=== PATIENT | female | born 1960 | race Caucasian/White ===

== ENCOUNTER 2018-05-14 10:15 | Outpatient (CLI) | payer OTHER ==
--- NOTE | 2018-05-15 14:58 | MMO ---
SCREENING MAMMOGRAPHY: Date: 05-15-18 Comparison: 02-28-12 History: Screening. FINDINGS: This study is interpreted with the assistance of computer aided detection. Scattered fibroglandular density present. Benign calcification present on the left. No dominant mass or architectural distortion. No concerning microcalcifications. IMPRESSION: BIRADS 2 - benign findings. Annual screening mammography recommended. POS: [facility]
== END 2018-05-14 10:16 | disposition home or self-care (01) ==
LOC: SCSMAMMO 10:15
PROVIDERS: ATTEND Internal Medicine
DX: Z12.31 Encounter for screening mammogram for malignant neoplasm of breast (principal)
CPT/HCPCS: 77067

== ENCOUNTER 2018-11-14 10:18 | Outpatient (CLI) | payer OTHER ==
--- NOTE | 2018-11-14 13:40 | CT ---
ABDOMEN CT WITH CONTRAST PELVIC CT WITH CONTRAST: HISTORY: Generalized abdominal pain. COMPARISON: None. CORRELATION: Angiogram chest CT 08/13/2012. FINDINGS: ABDOMEN CT: The lung bases are clear. Stable hypodensity in the left hepatic lobe measuring 0.9 x 1.4 cm. Overall, there is mild hypoatten uation of the liver suggesting hepatic steatosis. No enhancing masses in the liver. Gallbladder is surgically absent. Dilatation of the common bile duct is felt to be due to a reservoir effect from p revious cholecystectomy. Portal vein is patent. Spleen, pancreas, and adrenal glands have appropriate enhancement. No gastrohepatic, retrocrural, or periportal lymphadenopathy. No mesenteric mass, lymphadenopathy, free air, or free fluid. Symmetric enhancement of the kidneys. Bilaterally, no obstructive uropathy. Visualized gastric mucosa, duodenum, and multiple normal-caliber small bowel loops have a normal conf iguration. Ileocecal junction is normal. There is scattered fecal material in a nondistended, nondi lated colon. Occasional diverticulum. There is no diverticulitis. Appendix is not appreciated. No inflammation at the cecal apex. CT PELVIS: Surgically absent uterus. No pelvic mass, lymphadenopathy, free air, or free fluid. No lytic or blastic lesions in the osseous structures. IMPRESSION: No acute abnormality in the abdomen or pelvis. POS: [facility]
== END 2018-11-14 10:19 | disposition home or self-care (01) ==
LOC: SCSCT 10:18
PROVIDERS: ATTEND Internal Medicine Gastroenterology
DX: R10.84 Generalized abdominal pain (principal)
CPT/HCPCS: 74177

== ENCOUNTER 2021-11-25 08:21 | Outpatient (CLI) | payer OTHER | END 2021-11-25 08:22 | disposition home or self-care (01) | LOC: SCSRAD 08:21 | PROVIDERS: ATTEND Internal Medicine | DX: R05.3 Chronic cough (principal) | CPT/HCPCS: 71046 ==

== ENCOUNTER 2022-03-22 09:00 | Outpatient (CLI) | payer OTHER | END 2022-03-22 09:01 | disposition home or self-care (01) | LOC: SCSRAD 09:00 | PROVIDERS: ATTEND Internal Medicine | DX: M54.6 Pain in thoracic spine (principal); R07.81 Pleurodynia | CPT/HCPCS: 72072 ==

== ENCOUNTER 2022-05-17 15:19 | Outpatient (CLI) | payer OTHER | END 2022-05-17 15:20 | disposition home or self-care (01) | LOC: DTY/OP 15:19 | PROVIDERS: ATTEND Physician Assistant Medical | DX: K74.60 Unspecified cirrhosis of liver (principal); K75.81 Nonalcoholic steatohepatitis (NASH) | CPT/HCPCS: 97802 ==

== ENCOUNTER 2022-12-21 09:43 | Outpatient (CLI) | payer OTHER | END 2022-12-21 09:44 | disposition home or self-care (01) | LOC: SCSMRI 09:43 | PROVIDERS: ATTEND Internal Medicine | DX: M25.511 Pain in right shoulder (principal); M65.811 Other synovitis and tenosynovitis, right shoulder ==

== ENCOUNTER 2023-02-14 11:24 | Emergency (ER) | payer OTHER ==
[~2023-02-14 11:24] MED LIST: Iopamidol-370 76% 500 ML MDV (1 ML CHARGE) ONE
[2023-02-14 11:55] LABS: #Lymphocytes 1.3 thou/uL (1.20-3.40); #Monocytes 0.4 thou/uL (0.11-0.59); #Neutrophils 2.7 thou/uL (1.40-6.50); %Basophils 0.9 % (0.0-1.0); %Eosinophils 0.8 % (0.0-10.0); %Lymphocytes 29.4 % (21.0-51.0); %Monocytes 9.4 % (0.0-10.0); %Neutrophils 59.5 % (42.0-75.0); Hemoglobin 14.9 g/dL (12.0-16.0); Mean Corpuscular HGB CONC 33.8 g/dL (32.0-36.0); Mean Corpuscular Hemoglobin 34.3 pg (27.0-31.0); Mean Platelet Volume 9.3 fL (7.4-10.4); Platelet Count 123 10x3/uL (130-400); RBC Distribution Width 13.3 % (11.5-14.5); Red Blood Cell (RBC) Count 4.35 mill/uL (4.20-5.40); White Blood Cell (WBC) Count 4.6 10x3/uL (4.8-10.8)
[2023-02-14 12:17] LABS: ALT (SGPT) 27 U/L (8-55); AST (SGOT) 51 U/L (5-34); Albumin 3.8 g/dL (3.5-5.0); Alkaline Phosphatase 163 U/L (40-110); Anion Gap 13 mmol/L (10-20); BUN (Urea Nitrogen) 15 mg/dL (9.8-20.1); Bilirubin, Total 1.8 mg/dL (0.2-1.2); Calc. Creatinine Clearance 0 mL/min (70-130); Calcium 9.3 mg/dL (7.8-10.44); Carbon Dioxide 23 mmol/L (22-29); Chloride 108 mmol/L (98-107); Estimated GFR 93; Glucose 85 mg/dL (70-105); Lipase 30 U/L (8-78); Potassium 3.9 mmol/L (3.5-5.1); Protein, Total 7.8 g/dL (6.0-8.3); Sodium 140 mmol/L (136-145)
[2023-02-14] MEDS ORDERED: Lidocaine Viscous Sol 2% 15 ml UD Cup ONE (13:33)
[2023-02-14] MEDS ORDERED: Mag-Al 1200 mg/1200 mg/30 ML UDCUP ONE (13:34)
[2023-02-14] MEDS ORDERED: Dicyclomine 20 MG TAB ONE (13:35)
[2023-02-14 13:42] LABS: INR-International Normal Ratio 1.2; PTT 35.5 sec (22.9-36.1); Prothrombin Time 15.3 sec (12.0-14.7)
[2023-02-14 14:12] LABS: Bilirubin Negative (Negative); Blood, Urine Negative (Negative); Clarity Clear (Clear); Glucose, Urine (Dipstick) Normal (Negative); Ketone, Urine Negative (Negative); Leukocyte Negative Leu/uL (Negative); Nitrite Negative (Negative); Protein, Urine (Dipstick) Negative (Neg-Trace); Specific Gravity, Urine 1.008 (1.002-1.036); Urobilinogen Normal mg/dL (Less than 2)
[2023-02-14] MEDS ORDERED: FENTANYL 50 MCG/ML 1 ML VIAL ONE (14:39)
== END 2023-02-14 16:25 | disposition home or self-care (01) ==
LOC: ERS 11:24
DX: K65.4 Sclerosing mesenteritis (principal); D72.829 Elevated white blood cell count, unspecified
CPT/HCPCS: 36415; 74177; 80053; 81003; 83690; 85025; 85610; 85730; 96374; J3010; Q9967

== ENCOUNTER 2024-04-24 07:11 | Outpatient (CLI) | payer OTHER | END 2024-04-24 07:12 | disposition home or self-care (01) | LOC: SCSRAD 07:11 | PROVIDERS: ATTEND Internal Medicine | DX: R79.89 Other specified abnormal findings of blood chemistry (principal) | CPT/HCPCS: 71046 ==

== ENCOUNTER 2024-05-21 14:21 | Outpatient (CLI) | payer OTHER | END 2024-05-21 14:22 | disposition home or self-care (01) | LOC: SCSMRI 14:21 | PROVIDERS: ATTEND Internal Medicine | DX: M51.26 Other intervertebral disc displacement, lumbar region (principal); M51.36 Other intervertebral disc degeneration, lumbar region; M51.34 Other intervertebral disc degeneration, thoracic region; M43.17 Spondylolisthesis, lumbosacral region | CPT/HCPCS: 72148 ==

== ENCOUNTER 2024-08-11 08:07 | Outpatient (CLI) | payer OTHER | END 2024-08-11 08:08 | disposition home or self-care (01) | LOC: SCSMRI 08:07 | PROVIDERS: ATTEND Nurse Practitioner Family | DX: M48.062 Spinal stenosis, lumbar region with neurogenic claudication (principal); M48.07 Spinal stenosis, lumbosacral region; M43.17 Spondylolisthesis, lumbosacral region | CPT/HCPCS: 72148 ==

== ENCOUNTER 2025-06-17 08:34 | Inpatient (IN) | payer OTHER ==
[2025-06-17 09:49] LABS: ALT (SGPT) 26 U/L (Less than 34); AST (SGOT) 69 U/L (11-34); Albumin 3.4 g/dL (3.1-4.5); Alkaline Phosphatase 128 U/L (40-110); Anion Gap 19 mmol/L (10-20); BUN (Urea Nitrogen) 15 mg/dL (9.8-20.1); Bilirubin, Total 2.8 mg/dL (0.3-1.2); Calc. Creatinine Clearance 0 mL/min (70-130); Calcium 9.2 mg/dL (7.8-10.44); Carbon Dioxide 23 mmol/L (23-31); Chloride 95 mmol/L (98-107); Globulin 4.6 g/dL (2.4-3.5); Glucose 96 mg/dL (80-115); Potassium 3.7 mmol/L (3.5-5.1); Sodium 133 mmol/L (136-145)
[2025-06-17 09:52] LABS: #Basophils Less than 0.03 10x3/uL (0.0-0.2); #Eosinophils 0.06 10x3/uL (0.0-0.7); #Monocytes 0.39 10x3/uL (0.11-0.59); #Neutrophils 4.01 10x3/uL (1.40-6.50); %Basophils 0.4 % (0.0-1.0); %Eosinophils 1.1 % (0.0-10.0); %Lymphocytes 19.2 % (21.0-51.0); %Monocytes 7.0 % (0.0-10.0); %Neutrophils 71.8 % (42.0-75.0); Hematocrit 33.9 % (36.0-47.0); Hemoglobin 11.9 g/dL (12.0-16.0); Mean Corpuscular Hemoglobin 33.1 pg (27.0-31.0); Mean Corpuscular Volume 94.2 fL (78.0-98.0); Platelet Count 95 10x3/uL (130-400); Red Blood Cell (RBC) Count 3.60 mill/uL (4.20-5.40); White Blood Cell (WBC) Count 5.58 10x3/uL (4.8-10.8)
[2025-06-17 09:53] LABS: INR-International Normal Ratio 1.7; PTT 41.3 sec (22.9-36.1); Prothrombin Time 19.8 sec (12.0-14.7)
[2025-06-17 09:54] LABS: Troponin I Less than 0.010 ng/mL (< 0.028)
[2025-06-17] MEDS ORDERED: Bacitracin 1 PK ONE (10:09)
[2025-06-17] MEDS ORDERED: Acetaminophen 325 MG TAB ONE (10:09)
[2025-06-17] MEDS ORDERED: Lidocaine 1% w/Epinephrine 1:100K 20 ML VIAL ONE ×4 (10:10→14:55)
[2025-06-17] MEDS ORDERED: Boostrix 0.5 ML (Tdap) VIAL (>/=7 yrs of age) ONE (10:11)
[2025-06-17 10:13] LABS: Platelet Adequacy Comment Platelets Decreased; Target Cells SLIGHT = 2-5 cells HPF (0-1)
[2025-06-17] MEDS ORDERED: Ondansetron PF 4 MG/2 ML Vial ONE ×2 (11:07→12:25)
[2025-06-17] MEDS ORDERED: Iopamidol-370 76% 500 ML MDV (1 ML CHARGE) ONE (11:26)
[2025-06-17] MEDS ORDERED: hydrALAZINE 20 MG/ML VIAL SLOW IVP PRN (12:26)
[2025-06-17] MEDS ORDERED: HYDROmorphone 0.5 MG/0.5 ML SYRINGE ONE (12:45)
[2025-06-17] MEDS ORDERED: levETIRAcetam 500 MG (5 mL) VIAL ONE (14:21)
[2025-06-17] MEDS ORDERED: Thrombin 5000 UNITS/5 ML VIAL ONE (14:27)
[2025-06-17] MEDS ORDERED: PROPOFOL 200 MG/20 ML VIAL ONE (14:57)
[2025-06-17] MEDS ORDERED: Rocuronium Bromide 10 MG/ML (10ML VIAL) ONE (14:57)
[2025-06-17] MEDS ORDERED: PHENYLEPHRINE-NS 100 MCG/ML 10 ML SYRINGE ONE (14:57)
[2025-06-17] MEDS ORDERED: Glycopyrrolate 0.2 MG/ML 5 ML SYRINGE ONE (14:57)
[2025-06-17] MEDS: niCARdipine 25 MG in Sodium Chloride 0.9% 250 ML 250 ML IVPB SCH (19:24)
[2025-06-17] MEDS: levETIRAcetam 500 MG (5 mL) VIAL SLOW IVP SCH (20:00)
[2025-06-18] MEDS: HYDROmorphone 0.5 MG/0.5 ML SYRINGE SLOW IVP SCH (01:53)
[2025-06-18] MEDS: Ondansetron PF 4 MG/2 ML Vial IVP PRN (04:25)
[2025-06-18 04:57] LABS: ALT (SGPT) 19 U/L (Less than 34); AST (SGOT) 47 U/L (11-34); Albumin 3.5 g/dL (3.1-4.5); Alkaline Phosphatase 93 U/L (40-110); Anion Gap 16 mmol/L (10-20); BUN (Urea Nitrogen) 16 mg/dL (9.8-20.1); Bilirubin, Total 2.3 mg/dL (0.3-1.2); Calc. Creatinine Clearance 90 mL/min (70-130); Calcium 8.5 mg/dL (7.8-10.44); Carbon Dioxide 21 mmol/L (23-31); Chloride 102 mmol/L (98-107); Globulin 3.3 g/dL (2.4-3.5); Glucose 125 mg/dL (80-115); Potassium 3.9 mmol/L (3.5-5.1); Sodium 135 mmol/L (136-145)
[2025-06-18 05:06] LABS: #Basophils Less than 0.03 10x3/uL (0.0-0.2); #Eosinophils Less than 0.03 10x3/uL (0.0-0.7); #Monocytes 0.36 10x3/uL (0.11-0.59); #Neutrophils 9.28 10x3/uL (1.40-6.50); %Basophils 0.0 % (0.0-1.0); %Eosinophils 0.0 % (0.0-10.0); %Lymphocytes 3.8 % (21.0-51.0); %Monocytes 3.6 % (0.0-10.0); %Neutrophils 92.1 % (42.0-75.0); Hematocrit 25.2 % (36.0-47.0); Hemoglobin 8.6 g/dL (12.0-16.0); Mean Corpuscular Hemoglobin 34.0 pg (27.0-31.0); Mean Corpuscular Volume 99.6 fL (78.0-98.0); Platelet Count 122 10x3/uL (130-400); Red Blood Cell (RBC) Count 2.53 mill/uL (4.20-5.40); White Blood Cell (WBC) Count 10.07 10x3/uL (4.8-10.8)
[2025-06-18] MEDS: Pantoprazole 40 MG VIAL IVP SCH (09:22)
[2025-06-18] MEDS ORDERED: diphenhydrAMINE 50 MG/ML VIAL IM/IV PRN (10:30)
[2025-06-18] MEDS ORDERED: diphenhydrAMINE 25 MG CAP PO PRN (10:30)
[2025-06-18] MEDS: HYDROmorphone HCl/0.9% NaCl/PF 30 ML IV SCH (11:04)
[2025-06-18] MEDS: Lactulose 20 GM (30 mL) UDCUP PO SCH (16:58)
[2025-06-18] MEDS: Rifaximin 550 MG TAB PO SCH (20:31)
[2025-06-19 04:35] LABS: ALT (SGPT) 17 U/L (Less than 34); AST (SGOT) 52 U/L (11-34); Albumin 3.1 g/dL (3.1-4.5); Alkaline Phosphatase 93 U/L (40-110); Anion Gap 10 mmol/L (10-20); BUN (Urea Nitrogen) 22 mg/dL (9.8-20.1); Bilirubin, Total 1.6 mg/dL (0.3-1.2); Calc. Creatinine Clearance 93 mL/min (70-130); Calcium 8.2 mg/dL (7.8-10.44); Carbon Dioxide 24 mmol/L (23-31); Chloride 106 mmol/L (98-107); Globulin 3.1 g/dL (2.4-3.5); Glucose 113 mg/dL (80-115); Potassium 4.1 mmol/L (3.5-5.1); Sodium 136 mmol/L (136-145)
[2025-06-19 04:37] LABS: #Basophils Less than 0.03 10x3/uL (0.0-0.2); #Eosinophils Less than 0.03 10x3/uL (0.0-0.7); #Monocytes 0.84 10x3/uL (0.11-0.59); #Neutrophils 12.79 10x3/uL (1.40-6.50); %Basophils 0.1 % (0.0-1.0); %Eosinophils 0.0 % (0.0-10.0); %Lymphocytes 4.9 % (21.0-51.0); %Monocytes 5.8 % (0.0-10.0); %Neutrophils 88.9 % (42.0-75.0); Hematocrit 22.7 % (36.0-47.0); Hemoglobin 7.7 g/dL (12.0-16.0); Mean Corpuscular Hemoglobin 33.6 pg (27.0-31.0); Mean Corpuscular Volume 99.1 fL (78.0-98.0); Platelet Count 106 10x3/uL (130-400); Red Blood Cell (RBC) Count 2.29 mill/uL (4.20-5.40); White Blood Cell (WBC) Count 14.38 10x3/uL (4.8-10.8)
[2025-06-19 04:46] LABS: INR-International Normal Ratio 1.8; Prothrombin Time 21.5 sec (12.0-14.7)
[2025-06-19] MEDS: Pantoprazole 40 MG DR.TAB PO SCH (09:23)
[2025-06-19] MEDS: Furosemide 20 MG (2 mL) VIAL SLOW IVP SCH (22:30)
[2025-06-19 22:50] LABS: Hematocrit 23.6 % (36.0-47.0); Hemoglobin 8.1 g/dL (12.0-16.0)
[2025-06-20 06:28] LABS: #Basophils Less than 0.03 10x3/uL (0.0-0.2); #Eosinophils Less than 0.03 10x3/uL (0.0-0.7); #Monocytes 0.65 10x3/uL (0.11-0.59); #Neutrophils 3.89 10x3/uL (1.40-6.50); %Basophils 0.0 % (0.0-1.0); %Eosinophils 0.4 % (0.0-10.0); %Lymphocytes 14.6 % (21.0-51.0); %Monocytes 12.0 % (0.0-10.0); %Neutrophils 72.1 % (42.0-75.0); Hematocrit 24.1 % (36.0-47.0); Hemoglobin 8.1 g/dL (12.0-16.0); Mean Corpuscular Hemoglobin 33.5 pg (27.0-31.0); Mean Corpuscular Volume 99.6 fL (78.0-98.0); Platelet Count 72 10x3/uL (130-400); Red Blood Cell (RBC) Count 2.42 mill/uL (4.20-5.40); White Blood Cell (WBC) Count 5.40 10x3/uL (4.8-10.8)
[2025-06-20 06:54] LABS: ALT (SGPT) 18 U/L (Less than 34); AST (SGOT) 61 U/L (11-34); Albumin 3.1 g/dL (3.1-4.5); Alkaline Phosphatase 93 U/L (40-110); Anion Gap 13 mmol/L (10-20); BUN (Urea Nitrogen) 18 mg/dL (9.8-20.1); Bilirubin, Total 2.2 mg/dL (0.3-1.2); Calc. Creatinine Clearance 117 mL/min (70-130); Calcium 8.2 mg/dL (7.8-10.44); Carbon Dioxide 23 mmol/L (23-31); Chloride 107 mmol/L (98-107); Globulin 3.0 g/dL (2.4-3.5); Glucose 95 mg/dL (80-115); Potassium 3.6 mmol/L (3.5-5.1); Sodium 139 mmol/L (136-145)
[2025-06-20] MEDS: HYDROcodone/Acetaminophen 10/325 mg Tablet PO PRN (13:04)
[2025-06-21 05:42] LABS: #Basophils Less than 0.03 10x3/uL (0.0-0.2); #Eosinophils 0.04 10x3/uL (0.0-0.7); #Monocytes 0.41 10x3/uL (0.11-0.59); #Neutrophils 2.80 10x3/uL (1.40-6.50); %Basophils 0.2 % (0.0-1.0); %Eosinophils 1.0 % (0.0-10.0); %Lymphocytes 19.2 % (21.0-51.0); %Monocytes 10.1 % (0.0-10.0); %Neutrophils 69.0 % (42.0-75.0); Hematocrit 24.7 % (36.0-47.0); Hemoglobin 8.3 g/dL (12.0-16.0); Mean Corpuscular Hemoglobin 32.8 pg (27.0-31.0); Mean Corpuscular Volume 97.6 fL (78.0-98.0); Platelet Count 77 10x3/uL (130-400); Red Blood Cell (RBC) Count 2.53 mill/uL (4.20-5.40); White Blood Cell (WBC) Count 4.06 10x3/uL (4.8-10.8)
[2025-06-21 05:49] LABS: ALT (SGPT) 18 U/L (Less than 34); AST (SGOT) 57 U/L (11-34); Albumin 2.9 g/dL (3.1-4.5); Alkaline Phosphatase 96 U/L (40-110); Anion Gap 12 mmol/L (10-20); BUN (Urea Nitrogen) 14 mg/dL (9.8-20.1); Bilirubin, Total 2.7 mg/dL (0.3-1.2); Calc. Creatinine Clearance 143 mL/min (70-130); Calcium 8.0 mg/dL (7.8-10.44); Carbon Dioxide 23 mmol/L (23-31); Chloride 105 mmol/L (98-107); Globulin 3.0 g/dL (2.4-3.5); Glucose 90 mg/dL (80-115); Potassium 3.8 mmol/L (3.5-5.1); Sodium 136 mmol/L (136-145)
[2025-06-21] MEDS: HYDROcodone/Acetaminophen 10/325 mg Tablet PO PRN (12:15)
[2025-06-21] MEDS: Spironolactone 25 MG TAB PO SCH (18:49)
[2025-06-21] MEDS: Sucralfate 1 GM TAB PO SCH (21:07)
[2025-06-22] MEDS: Acetaminophen 325 MG TAB PO PRN (02:08)
[2025-06-22 06:51] LABS: #Basophils Less than 0.03 10x3/uL (0.0-0.2); #Eosinophils 0.06 10x3/uL (0.0-0.7); #Monocytes 0.32 10x3/uL (0.11-0.59); #Neutrophils 2.26 10x3/uL (1.40-6.50); %Basophils 0.3 % (0.0-1.0); %Eosinophils 1.8 % (0.0-10.0); %Lymphocytes 18.4 % (21.0-51.0); %Monocytes 9.8 % (0.0-10.0); %Neutrophils 69.4 % (42.0-75.0); Hematocrit 23.0 % (36.0-47.0); Hemoglobin 8.0 g/dL (12.0-16.0); Mean Corpuscular Hemoglobin 34.3 pg (27.0-31.0); Mean Corpuscular Volume 98.7 fL (78.0-98.0); Platelet Count 93 10x3/uL (130-400); Red Blood Cell (RBC) Count 2.33 mill/uL (4.20-5.40); White Blood Cell (WBC) Count 3.26 10x3/uL (4.8-10.8)
[2025-06-22 06:52] LABS: ALT (SGPT) 20 U/L (Less than 34); AST (SGOT) 56 U/L (11-34); Albumin 2.8 g/dL (3.1-4.5); Alkaline Phosphatase 101 U/L (40-110); Anion Gap 12 mmol/L (10-20); BUN (Urea Nitrogen) 13 mg/dL (9.8-20.1); Bilirubin, Total 2.4 mg/dL (0.3-1.2); Calc. Creatinine Clearance 143 mL/min (70-130); Calcium 8.0 mg/dL (7.8-10.44); Carbon Dioxide 25 mmol/L (23-31); Chloride 107 mmol/L (98-107); Globulin 3.1 g/dL (2.4-3.5); Glucose 93 mg/dL (80-115); Potassium 3.8 mmol/L (3.5-5.1); Sodium 140 mmol/L (136-145)
[2025-06-22 06:58] LABS: INR-International Normal Ratio 1.6; Prothrombin Time 19.4 sec (12.0-14.7)
[2025-06-22] MEDS: Spironolactone 25 MG TAB PO SCH (08:11)
[2025-06-22] MEDS: oxyCODONE 5 MG TAB PO PRN (13:43)
[2025-06-23 05:24] LABS: #Basophils Less than 0.03 10x3/uL (0.0-0.2); #Eosinophils 0.08 10x3/uL (0.0-0.7); #Monocytes 0.51 10x3/uL (0.11-0.59); #Neutrophils 2.40 10x3/uL (1.40-6.50); %Basophils 0.3 % (0.0-1.0); %Eosinophils 2.1 % (0.0-10.0); %Lymphocytes 19.5 % (21.0-51.0); %Monocytes 13.6 % (0.0-10.0); %Neutrophils 64.2 % (42.0-75.0); Hematocrit 23.1 % (36.0-47.0); Hemoglobin 7.9 g/dL (12.0-16.0); Mean Corpuscular Hemoglobin 33.6 pg (27.0-31.0); Mean Corpuscular Volume 98.3 fL (78.0-98.0); Platelet Count 86 10x3/uL (130-400); Red Blood Cell (RBC) Count 2.35 mill/uL (4.20-5.40); White Blood Cell (WBC) Count 3.74 10x3/uL (4.8-10.8)
[2025-06-23 05:36] LABS: ALT (SGPT) 22 U/L (Less than 34); AST (SGOT) 59 U/L (11-34); Albumin 2.7 g/dL (3.1-4.5); Alkaline Phosphatase 101 U/L (40-110); Anion Gap 10 mmol/L (10-20); BUN (Urea Nitrogen) 10 mg/dL (9.8-20.1); Bilirubin, Total 1.7 mg/dL (0.3-1.2); Calc. Creatinine Clearance 135 mL/min (70-130); Calcium 7.8 mg/dL (7.8-10.44); Carbon Dioxide 27 mmol/L (23-31); Chloride 106 mmol/L (98-107); Globulin 2.9 g/dL (2.4-3.5); Glucose 96 mg/dL (80-115); Potassium 3.9 mmol/L (3.5-5.1); Sodium 139 mmol/L (136-145)
[2025-06-23] MEDS: Furosemide 40 MG TAB PO SCH (09:20)
[2025-06-23] MEDS: Methocarbamol 500 MG TAB PO PRN (15:08)
[2025-06-24 05:56] LABS: ALT (SGPT) 23 U/L (Less than 34); AST (SGOT) 60 U/L (11-34); Albumin 2.8 g/dL (3.1-4.5); Alkaline Phosphatase 120 U/L (40-110); Anion Gap 14 mmol/L (10-20); BUN (Urea Nitrogen) 5 mg/dL (9.8-20.1); Bilirubin, Total 2.1 mg/dL (0.3-1.2); Calc. Creatinine Clearance 132 mL/min (70-130); Calcium 8.3 mg/dL (7.8-10.44); Carbon Dioxide 28 mmol/L (23-31); Chloride 100 mmol/L (98-107); Globulin 3.2 g/dL (2.4-3.5); Glucose 98 mg/dL (80-115); Potassium 3.7 mmol/L (3.5-5.1); Sodium 138 mmol/L (136-145)
[2025-06-24 06:13] LABS: #Basophils Less than 0.03 10x3/uL (0.0-0.2); #Eosinophils 0.09 10x3/uL (0.0-0.7); #Monocytes 0.63 10x3/uL (0.11-0.59); #Neutrophils 3.19 10x3/uL (1.40-6.50); %Basophils 0.4 % (0.0-1.0); %Eosinophils 1.9 % (0.0-10.0); %Lymphocytes 17.9 % (21.0-51.0); %Monocytes 13.1 % (0.0-10.0); %Neutrophils 66.3 % (42.0-75.0); Hematocrit 24.5 % (36.0-47.0); Hemoglobin 8.5 g/dL (12.0-16.0); Mean Corpuscular Hemoglobin 33.5 pg (27.0-31.0); Mean Corpuscular Volume 96.5 fL (78.0-98.0); Platelet Count 95 10x3/uL (130-400); Red Blood Cell (RBC) Count 2.54 mill/uL (4.20-5.40); White Blood Cell (WBC) Count 4.81 10x3/uL (4.8-10.8)
[2025-06-25 04:38] LABS: #Basophils 0.03 10x3/uL (0.0-0.2); #Eosinophils 0.05 10x3/uL (0.0-0.7); #Monocytes 0.76 10x3/uL (0.11-0.59); #Neutrophils 4.38 10x3/uL (1.40-6.50); %Basophils 0.5 % (0.0-1.0); %Eosinophils 0.8 % (0.0-10.0); %Lymphocytes 14.0 % (21.0-51.0); %Monocytes 12.5 % (0.0-10.0); %Neutrophils 71.9 % (42.0-75.0); Hematocrit 29.1 % (36.0-47.0); Hemoglobin 9.9 g/dL (12.0-16.0); Mean Corpuscular Hemoglobin 32.6 pg (27.0-31.0); Mean Corpuscular Volume 95.7 fL (78.0-98.0); Platelet Count 103 10x3/uL (130-400); Red Blood Cell (RBC) Count 3.04 mill/uL (4.20-5.40); White Blood Cell (WBC) Count 6.09 10x3/uL (4.8-10.8)
[2025-06-25 04:44] LABS: ALT (SGPT) 25 U/L (Less than 34); AST (SGOT) 72 U/L (11-34); Albumin 3.0 g/dL (3.1-4.5); Alkaline Phosphatase 139 U/L (40-110); Anion Gap 15 mmol/L (10-20); BUN (Urea Nitrogen) 7 mg/dL (9.8-20.1); Bilirubin, Total 2.4 mg/dL (0.3-1.2); Calc. Creatinine Clearance 115 mL/min (70-130); Calcium 8.7 mg/dL (7.8-10.44); Carbon Dioxide 26 mmol/L (23-31); Chloride 97 mmol/L (98-107); Globulin 3.9 g/dL (2.4-3.5); Glucose 89 mg/dL (80-115); Potassium 4.3 mmol/L (3.5-5.1); Sodium 134 mmol/L (136-145)
[2025-06-25] MEDS: levETIRAcetam 500 MG TAB PO SCH ×2 (07:17→21:47)
[2025-06-26 05:18] LABS: #Basophils 0.03 10x3/uL (0.0-0.2); #Eosinophils 0.10 10x3/uL (0.0-0.7); #Monocytes 0.93 10x3/uL (0.11-0.59); #Neutrophils 4.27 10x3/uL (1.40-6.50); %Basophils 0.4 % (0.0-1.0); %Eosinophils 1.5 % (0.0-10.0); %Lymphocytes 20.1 % (21.0-51.0); %Monocytes 13.9 % (0.0-10.0); %Neutrophils 63.8 % (42.0-75.0); Hematocrit 30.3 % (36.0-47.0); Hemoglobin 10.5 g/dL (12.0-16.0); Mean Corpuscular Hemoglobin 32.6 pg (27.0-31.0); Mean Corpuscular Volume 94.1 fL (78.0-98.0); Platelet Count 136 10x3/uL (130-400); Red Blood Cell (RBC) Count 3.22 mill/uL (4.20-5.40); White Blood Cell (WBC) Count 6.70 10x3/uL (4.8-10.8)
[2025-06-26 05:44] LABS: ALT (SGPT) 24 U/L (Less than 34); AST (SGOT) 54 U/L (11-34); Albumin 3.3 g/dL (3.1-4.5); Alkaline Phosphatase 163 U/L (40-110); Anion Gap 17 mmol/L (10-20); BUN (Urea Nitrogen) 10 mg/dL (9.8-20.1); Bilirubin, Total 2.9 mg/dL (0.3-1.2); Calc. Creatinine Clearance 98 mL/min (70-130); Calcium 9.0 mg/dL (7.8-10.44); Carbon Dioxide 26 mmol/L (23-31); Chloride 96 mmol/L (98-107); Globulin 4.1 g/dL (2.4-3.5); Glucose 102 mg/dL (80-115); Potassium 3.7 mmol/L (3.5-5.1); Sodium 135 mmol/L (136-145)
[2025-06-26 06:04] VITALS: BMI 31.2
[2025-06-26 09:07] VITALS: BP 112/48; TEMP 98.6
[2025-06-26 10:18] VITALS: BMI 31.2
[2025-06-27] MEDS ORDERED: Megestrol Acetate 800 MG/20 ML UDCUP PO SCH (09:00)
== END 2025-06-26 09:55 | DRG 26 ==
LOC: ERS 08:34 → ERHOLD 12:34 → CCU 12:34 → SURG A 14:46 → CCU 19:03 → SURG A 06-19 12:21
PROVIDERS: ADMIT Surgery Trauma Surgery; ATTEND Surgery Trauma Surgery
PROC: 03V Upper Arteries, Restriction (ICD-10-PCS; principal; 2025-06-17)
PROC: 30233L1 Transfusion of Nonautologous Fresh Plasma into Peripheral Vein, Percutaneous Approach (ICD-10-PCS; 2025-06-17)
PROC: 30233N1 Transfusion of Nonautologous Red Blood Cells into Peripheral Vein, Percutaneous Approach (ICD-10-PCS; 2025-06-17)
PROC: 30233R1 Transfusion of Nonautologous Platelets into Peripheral Vein, Percutaneous Approach (ICD-10-PCS; 2025-06-17)
PROC: 30233K1 Transfusion of Nonautologous Frozen Plasma into Peripheral Vein, Percutaneous Approach (ICD-10-PCS; 2025-06-17)
PROC: 00940ZZ Drainage of Intracranial Subdural Space, Open Approach (ICD-10-PCS; 2025-06-17)
PROC: 6A551Z2 Pheresis of Platelets, Multiple (ICD-10-PCS; 2025-06-17)
PROC: 3E03329 Introduction of Other Anti-infective into Peripheral Vein, Percutaneous Approach (ICD-10-PCS; 2025-06-18)
PROC: 0T9B70Z Drainage of Bladder with Drainage Device, Via Natural or Artificial Opening (ICD-10-PCS; 2025-06-18)
PROC: 0HQ1XZZ Repair Face Skin, External Approach (ICD-10-PCS; 2025-06-18)
PROC: 3E0234Z Introduction of Serum, Toxoid and Vaccine into Muscle, Percutaneous Approach (ICD-10-PCS; 2025-06-18)
PROC: 3E033XZ Introduction of Vasopressor into Peripheral Vein, Percutaneous Approach (ICD-10-PCS; 2025-06-18)
DX: S06.5XAA Traumatic subdural hemorrhage with loss of consciousness status unknown, initial encounter (principal); D68.9 Coagulation defect, unspecified; I50.32 Chronic diastolic (congestive) heart failure; F41.9 Anxiety disorder, unspecified; F10.90 Alcohol use, unspecified, uncomplicated; W01.0XXA Fall on same level from slipping, tripping and stumbling without subsequent striking against object, initial encounter; D69.59 Other secondary thrombocytopenia; K75.81 Nonalcoholic steatohepatitis (NASH); R40.2413 Glasgow coma scale score 13-15, at hospital admission; K74.60 Unspecified cirrhosis of liver; S01.81XA Laceration without foreign body of other part of head, initial encounter; Z86.004 Personal history of in-situ neoplasm of other and unspecified digestive organs; Z98.890 Other specified postprocedural states; Z23 Encounter for immunization; Z90.710 Acquired absence of both cervix and uterus; Z90.49 Acquired absence of other specified parts of digestive tract; Z88.8 Allergy status to other drugs, medicaments and biological substances; Z79.899 Other long term (current) drug therapy; Z98.891 History of uterine scar from previous surgery; Z88.6 Allergy status to analgesic agent
CPT/HCPCS: 12011; 36415; 36430; 70450; 70486; 71260; 72125; 74177; 80053; 82140; 84484; 85025; 85610; 85730; 86850; 86900; 86901; 90471; 90715; 93005; 96374; 96375; 96376; C1713; C1876; C1889; J1100; J1171; J1940; J1953; J2270; J2405; J2470; J2550; J2704; J3010; J3373; J7030; J7050; J7799; P9016; P9035; P9059; Q9967

== ENCOUNTER 2025-07-31 11:34 | Inpatient (IN) | payer OTHER ==
[2025-07-31 12:30] LABS: Bacteria/HPF None Seen HPF (None Seen); CAUTI Indications for Culture Alt mental st,lethar; Glucose, Urine (Dipstick) 50 mg/dL (Negative); Leukocyte Negative Leu/uL (Negative); Protein, Urine (Dipstick) Negative (Neg-Trace); RBC/HPF 0-3 HPF (0-3); Specific Gravity, Urine 1.006 (1.002-1.036); WBC/HPF 0-3 HPF (0-3)
[2025-07-31 12:33] LABS: Urine Culture Reflex No No
[2025-07-31] MEDS ORDERED: levETIRAcetam 500 MG (5 mL) VIAL ONE (12:47)
[2025-07-31 13:33] LABS: Osmolality, Urine 263 mOsm/kg (50-1200)
[2025-07-31 14:04] LABS: #Basophils Less than 0.03 10x3/uL (0.0-0.2); #Eosinophils Less than 0.03 10x3/uL (0.0-0.7); #Monocytes 0.63 10x3/uL (0.11-0.59); #Neutrophils 3.49 10x3/uL (1.40-6.50); %Basophils 0.2 % (0.0-1.0); %Eosinophils 0.4 % (0.0-10.0); %Lymphocytes 10.5 % (21.0-51.0); %Monocytes 13.5 % (0.0-10.0); %Neutrophils 75.0 % (42.0-75.0); Hematocrit 20.4 % (36.0-47.0); Hemoglobin 6.9 g/dL (12.0-16.0); Mean Corpuscular Hemoglobin 32.2 pg (27.0-31.0); Mean Corpuscular Volume 95.3 fL (78.0-98.0); Platelet Count 89 10x3/uL (130-400); Red Blood Cell (RBC) Count 2.14 mill/uL (4.20-5.40); White Blood Cell (WBC) Count 4.66 10x3/uL (4.8-10.8)
[2025-07-31 14:12] LABS: ALT (SGPT) 19 U/L (Less than 34); AST (SGOT) 59 U/L (11-34); Albumin 2.1 g/dL (3.1-4.5); Alkaline Phosphatase 136 U/L (40-110); Anion Gap 13 mmol/L (10-20); BUN (Urea Nitrogen) 17 mg/dL (9.8-20.1); Bilirubin, Total 2.9 mg/dL (0.3-1.2); Calc. Creatinine Clearance 0 mL/min (70-130); Calcium 7.9 mg/dL (7.8-10.44); Carbon Dioxide 21 mmol/L (23-31); Chloride 105 mmol/L (98-107); Globulin 3.7 g/dL (2.4-3.5); Glucose 96 mg/dL (80-115); Potassium 3.9 mmol/L (3.5-5.1); Sodium 135 mmol/L (136-145)
[2025-07-31 14:16] LABS: Osmolality, Serum 285 mOsm/kg (280-301)
[2025-07-31] MEDS: levETIRAcetam 500 MG (5 mL) VIAL SLOW IVP SCH (21:53)
[2025-08-01 00:25] VITALS: BMI 35.9
[2025-08-01 04:12] LABS: #Basophils Less than 0.03 10x3/uL (0.0-0.2); #Eosinophils 0.09 10x3/uL (0.0-0.7); #Monocytes 0.46 10x3/uL (0.11-0.59); #Neutrophils 2.62 10x3/uL (1.40-6.50); %Basophils 0.2 % (0.0-1.0); %Eosinophils 2.2 % (0.0-10.0); %Lymphocytes 22.9 % (21.0-51.0); %Monocytes 11.1 % (0.0-10.0); %Neutrophils 63.4 % (42.0-75.0); Hematocrit 21.1 % (36.0-47.0); Hemoglobin 7.6 g/dL (12.0-16.0); Mean Corpuscular Hemoglobin 33.2 pg (27.0-31.0); Mean Corpuscular Volume 92.1 fL (78.0-98.0); Platelet Count 103 10x3/uL (130-400); Red Blood Cell (RBC) Count 2.29 mill/uL (4.20-5.40); White Blood Cell (WBC) Count 4.14 10x3/uL (4.8-10.8)
[2025-08-01 04:26] LABS: Anion Gap 12 mmol/L (10-20); BUN (Urea Nitrogen) 19 mg/dL (9.8-20.1); Calc. Creatinine Clearance 121 mL/min (70-130); Calcium 7.9 mg/dL (7.8-10.44); Carbon Dioxide 23 mmol/L (23-31); Chloride 107 mmol/L (98-107); Glucose 71 mg/dL (80-115); Potassium 3.8 mmol/L (3.5-5.1); Sodium 138 mmol/L (136-145)
[2025-08-01] MEDS: Lactulose 20 GM (30 mL) UDCUP PO SCH (09:10)
[2025-08-01] MEDS: Sucralfate 1 GM TAB PO SCH (09:16)
[2025-08-01] MEDS: Folic Acid 1 MG TAB PO SCH (09:16)
[2025-08-01] MEDS: Dapagliflozin Propanediol 10 MG TAB PO SCH (09:17)
[2025-08-01] MEDS: Ferrous Sulfate 325 MG TAB PO SCH (09:17)
[2025-08-01] MEDS: Furosemide 40 MG TAB PO SCH (09:17)
[2025-08-01] MEDS: Pantoprazole 40 MG DR.TAB PO SCH (09:17)
[2025-08-01] MEDS: Cholecalciferol (Vitamin D3) 400 UNITS TAB PO SCH (09:17)
[2025-08-01] MEDS: Methocarbamol 500 MG TAB PO PRN (09:29)
[2025-08-01] MEDS: cefTRIAXone\\ROCEPHIN 2 GM in Sodium Chloride 0.9% 100 ML IVPB SCH (16:55)
[2025-08-01] MEDS: Mirtazapine 15 MG TAB PO SCH (20:36)
[2025-08-01] MEDS: HYDROcodone/Acetaminophen 10/325 mg Tablet PO SCH (20:55)
[2025-08-01] MEDS: Melatonin 3 MG TAB PO PRN (23:19)
[2025-08-02] MEDS: Lactulose 20 GM (30 mL) UDCUP PO SCH (09:09)
[2025-08-02] MEDS: Gabapentin 400 MG CAP PO SCH (09:13)
[2025-08-02] MEDS: Cholecalciferol 1,000 UNITS (25 MCG) TAB PO SCH (09:13)
[2025-08-02] MEDS: Rifaximin 550 MG TAB PO SCH (10:41)
[2025-08-02 12:06] VITALS: BP 101/61; TEMP 99
[2025-08-02] MEDS: HYDROcodone/Acetaminophen 10/325 mg Tablet PO PRN (12:28)
[2025-08-03] MEDS ORDERED: Spironolactone 25 MG TAB PO SCH (08:00)
== END 2025-08-02 15:33 | disposition home health service (06) | DRG 100 ==
LOC: ERS 11:34 → 2SE 18:22 → OBSVTOIN 08-01 15:34
PROVIDERS: ADMIT Internal Medicine; ATTEND Internal Medicine
PROC: 30233N1 Transfusion of Nonautologous Red Blood Cells into Peripheral Vein, Percutaneous Approach (ICD-10-PCS; principal; 2025-08-01)
PROC: 3E03329 Introduction of Other Anti-infective into Peripheral Vein, Percutaneous Approach (ICD-10-PCS; 2025-08-02)
DX: R56.9 Unspecified convulsions (principal); G93.41 Metabolic encephalopathy; I50.32 Chronic diastolic (congestive) heart failure; K74.60 Unspecified cirrhosis of liver; K31.7 Polyp of stomach and duodenum; D64.9 Anemia, unspecified; F41.9 Anxiety disorder, unspecified; Z88.8 Allergy status to other drugs, medicaments and biological substances; Z79.899 Other long term (current) drug therapy; Z98.890 Other specified postprocedural states; Z90.49 Acquired absence of other specified parts of digestive tract; Z90.710 Acquired absence of both cervix and uterus
CPT/HCPCS: 36415; 36416; 36430; 70450; 71045; 80048; 80053; 81001; 82140; 83930; 83935; 85025; 86850; 86900; 86901; 87077; 87086; 87186; 93005; 95819; 96365; 96375; 96376; G0378; J0696; J1953; J2060; J2272; P9016

== ENCOUNTER 2025-08-16 13:37 | Inpatient (IN) | payer OTHER ==
[2025-08-16] MEDS ORDERED: Furosemide 40 MG (4 mL) VIAL ONE (14:55)
[2025-08-16 15:16] LABS: #Basophils 0.03 10x3/uL (0.0-0.2); #Eosinophils Less than 0.03 10x3/uL (0.0-0.7); #Monocytes 0.83 10x3/uL (0.11-0.59); #Neutrophils 6.13 10x3/uL (1.40-6.50); %Basophils 0.4 % (0.0-1.0); %Eosinophils 0.3 % (0.0-10.0); %Lymphocytes 8.9 % (21.0-51.0); %Monocytes 10.7 % (0.0-10.0); %Neutrophils 79.2 % (42.0-75.0); Hematocrit 25.8 % (36.0-47.0); Hemoglobin 9.0 g/dL (12.0-16.0); Mean Corpuscular Hemoglobin 32.0 pg (27.0-31.0); Mean Corpuscular Volume 91.8 fL (78.0-98.0); Platelet Count 123 10x3/uL (130-400); Red Blood Cell (RBC) Count 2.81 mill/uL (4.20-5.40); White Blood Cell (WBC) Count 7.74 10x3/uL (4.8-10.8)
[2025-08-16] MEDS ORDERED: Acetaminophen 500 MG TAB ONE (15:17)
[2025-08-16] MEDS ORDERED: HYDROcodone/Acetaminophen 10/325 mg Tablet ONE (15:34)
[2025-08-16 15:39] LABS: ALT (SGPT) 19 U/L (Less than 34); AST (SGOT) 70 U/L (11-34); Albumin 2.3 g/dL (3.1-4.5); Alkaline Phosphatase 158 U/L (40-110); Anion Gap 17 mmol/L (10-20); BUN (Urea Nitrogen) 21 mg/dL (9.8-20.1); Bilirubin, Total 4.6 mg/dL (0.3-1.2); Calc. Creatinine Clearance 0 mL/min (70-130); Calcium 8.0 mg/dL (7.8-10.44); Carbon Dioxide 33 mmol/L (23-31); Chloride 85 mmol/L (98-107); Globulin 4.6 g/dL (2.4-3.5); Glucose 97 mg/dL (80-115); Potassium 2.1 mmol/L (3.5-5.1); Sodium 133 mmol/L (136-145)
[2025-08-16 16:03] LABS: Bacteria/HPF None Seen HPF (None Seen); CAUTI Indications for Culture Pelvic or flank pain; Glucose, Urine (Dipstick) Normal (Negative); Leukocyte Negative Leu/uL (Negative); Protein, Urine (Dipstick) Negative (Neg-Trace); RBC/HPF 0-3 HPF (0-3); Specific Gravity, Urine 1.009 (1.002-1.036); WBC/HPF 0-3 HPF (0-3)
[2025-08-16 16:05] LABS: Urine Culture Reflex No No
[2025-08-16] MEDS ORDERED: Potassium Chloride 20 MEQ (100 mL) BAG ONE (17:48)
[2025-08-16] MEDS ORDERED: diphenhydrAMINE 50 MG/ML VIAL ONE (18:06)
[2025-08-16] MEDS ORDERED: Prochlorperazine 10 MG/2 ML VIAL ONE (18:06)
[2025-08-16] MEDS ORDERED: Magnesium 2 GM/50 ML BAG (IN WATER) ONE (18:06)
[2025-08-16] MEDS ORDERED: Senokot S 8.6-50 MG TAB PO PRN (19:29)
[2025-08-16] MEDS ORDERED: Calcium Carbonate 500 MG ChewTAB PO PRN (19:29)
[2025-08-16 20:49] LABS: Magnesium 2.4 mg/dL (1.6-2.6)
[2025-08-16] MEDS ORDERED: levETIRAcetam 500 MG TAB PO SCH (21:00)
[2025-08-16] MEDS ORDERED: levETIRAcetam 500 MG TAB ONE (22:08)
[2025-08-17 00:10] VITALS: BMI 37.2
[2025-08-17] MEDS: Potassium Chloride 20 MEQ in Premix 1 BAG IVPB SCH ×2 (00:22→05:17)
[2025-08-17] MEDS: Melatonin 3 MG TAB PO PRN (00:23)
[2025-08-17] MEDS: Gabapentin 400 MG CAP PO SCH (00:23)
[2025-08-17] MEDS: oxyCODONE 5 MG TAB PO PRN (00:23)
[2025-08-17] MEDS: Sucralfate 1 GM TAB PO SCH (00:24)
[2025-08-17] MEDS: Mirtazapine 15 MG TAB PO SCH (00:24)
[2025-08-17] MEDS: Lactulose 20 GM (30 mL) UDCUP PO SCH (00:25)
[2025-08-17] MEDS: Rifaximin 550 MG TAB PO SCH (04:05)
[2025-08-17] MEDS: Magnesium Sulfate/D5W 1 GM in Premix 1 BAG IVPB SCH (04:05)
[2025-08-17] MEDS: Prochlorperazine 10 MG/2 ML VIAL SLOW IVP SCH (04:05)
[2025-08-17 04:21] LABS: #Basophils 0.03 10x3/uL (0.0-0.2); #Eosinophils 0.07 10x3/uL (0.0-0.7); #Monocytes 0.85 10x3/uL (0.11-0.59); #Neutrophils 4.95 10x3/uL (1.40-6.50); %Basophils 0.4 % (0.0-1.0); %Eosinophils 1.0 % (0.0-10.0); %Lymphocytes 13.6 % (21.0-51.0); %Monocytes 12.4 % (0.0-10.0); %Neutrophils 72.2 % (42.0-75.0); Hematocrit 20.9 % (36.0-47.0); Hemoglobin 7.5 g/dL (12.0-16.0); Mean Corpuscular Hemoglobin 32.8 pg (27.0-31.0); Mean Corpuscular Volume 91.3 fL (78.0-98.0); Platelet Count 103 10x3/uL (130-400); Red Blood Cell (RBC) Count 2.29 mill/uL (4.20-5.40); White Blood Cell (WBC) Count 6.86 10x3/uL (4.8-10.8)
[2025-08-17 04:37] LABS: ALT (SGPT) 17 U/L (Less than 34); AST (SGOT) 53 U/L (11-34); Albumin 2.5 g/dL (3.1-4.5); Alkaline Phosphatase 129 U/L (40-110); Anion Gap 16 mmol/L (10-20); BUN (Urea Nitrogen) 23 mg/dL (9.8-20.1); Bilirubin, Total 4.6 mg/dL (0.3-1.2); Calc. Creatinine Clearance 116 mL/min (70-130); Calcium 7.7 mg/dL (7.8-10.44); Carbon Dioxide 34 mmol/L (23-31); Chloride 85 mmol/L (98-107); Globulin 3.4 g/dL (2.4-3.5); Glucose 78 mg/dL (80-115); Potassium 2.1 mmol/L (3.5-5.1); Sodium 133 mmol/L (136-145)
[2025-08-17] MEDS ORDERED: Electrolyte Replacement Protocol 1 EACH FS SCH (04:45)
[2025-08-17] MEDS: Spironolactone 25 MG TAB PO SCH (08:18)
[2025-08-17] MEDS: levETIRAcetam 500 MG TAB PO SCH (08:19)
[2025-08-17] MEDS: Pantoprazole 40 MG DR.TAB PO SCH (08:20)
[2025-08-17] MEDS: Metoclopramide HCl 10 MG (2 mL) VIAL IVP SCH ×2 (11:22→23:01)
[2025-08-17 15:50] LABS: Hematocrit 22.3 % (36.0-47.0); Hemoglobin 7.6 g/dL (12.0-16.0)
[2025-08-17] MEDS: Aspirin/APAP/Caffeine Tab (Excedrin Migraine) PO PRN (16:53)
[2025-08-17 17:26] LABS: Anion Gap 18 mmol/L (10-20); BUN (Urea Nitrogen) 25 mg/dL (9.8-20.1); Calc. Creatinine Clearance 93 mL/min (70-130); Calcium 7.9 mg/dL (7.8-10.44); Carbon Dioxide 28 mmol/L (23-31); Chloride 87 mmol/L (98-107); Glucose 137 mg/dL (80-115); Magnesium 2.7 mg/dL (1.6-2.6); Potassium 3.3 mmol/L (3.5-5.1); Sodium 130 mmol/L (136-145)
[2025-08-18 04:11] LABS: #Basophils 0.04 10x3/uL (0.0-0.2); #Eosinophils 0.14 10x3/uL (0.0-0.7); #Monocytes 0.87 10x3/uL (0.11-0.59); #Neutrophils 5.46 10x3/uL (1.40-6.50); %Basophils 0.5 % (0.0-1.0); %Eosinophils 1.8 % (0.0-10.0); %Lymphocytes 16.9 % (21.0-51.0); %Monocytes 11.1 % (0.0-10.0); %Neutrophils 69.3 % (42.0-75.0); Hematocrit 22.9 % (36.0-47.0); Hemoglobin 7.7 g/dL (12.0-16.0); Mean Corpuscular Hemoglobin 31.8 pg (27.0-31.0); Mean Corpuscular Volume 94.6 fL (78.0-98.0); Platelet Count 103 10x3/uL (130-400); Red Blood Cell (RBC) Count 2.42 mill/uL (4.20-5.40); White Blood Cell (WBC) Count 7.87 10x3/uL (4.8-10.8)
[2025-08-18 04:26] LABS: ALT (SGPT) 23 U/L (Less than 34); AST (SGOT) 73 U/L (11-34); Albumin 2.6 g/dL (3.1-4.5); Alkaline Phosphatase 137 U/L (40-110); Anion Gap 15 mmol/L (10-20); BUN (Urea Nitrogen) 29 mg/dL (9.8-20.1); Bilirubin, Total 3.4 mg/dL (0.3-1.2); Calc. Creatinine Clearance 69 mL/min (70-130); Calcium 7.8 mg/dL (7.8-10.44); Carbon Dioxide 30 mmol/L (23-31); Chloride 85 mmol/L (98-107); Globulin 3.8 g/dL (2.4-3.5); Glucose 93 mg/dL (80-115); Magnesium 2.6 mg/dL (1.6-2.6); Potassium 2.9 mmol/L (3.5-5.1); Sodium 127 mmol/L (136-145)
[2025-08-18] MEDS: NS 0.9% w/ 40 MEQ KCL 1,000 ML IV SCH (09:23)
[2025-08-18] MEDS: Ondansetron PF 4 MG/2 ML Vial IVP PRN (09:48)
[2025-08-18] MEDS: Metoclopramide HCl 10 MG (2 mL) VIAL IVP SCH (14:07)
[2025-08-18] MEDS: Albumin 25% 25 GM (100 mL) BOT IVPB SCH (14:08)
[2025-08-18] MEDS: diphenhydrAMINE 50 MG/ML VIAL IVP SCH (14:08)
[2025-08-18] MEDS: Morphine IR Tab 15 MG TAB PO PRN (17:40)
[2025-08-18 18:06] LABS: Anion Gap 14 mmol/L (10-20); BUN (Urea Nitrogen) 27 mg/dL (9.8-20.1); Calc. Creatinine Clearance 70 mL/min (70-130); Calcium 7.8 mg/dL (7.8-10.44); Carbon Dioxide 28 mmol/L (23-31); Chloride 85 mmol/L (98-107); Glucose 166 mg/dL (80-115); Magnesium 2.7 mg/dL (1.6-2.6); Potassium 3.9 mmol/L (3.5-5.1); Sodium 123 mmol/L (136-145)
[2025-08-19 04:26] LABS: #Basophils 0.03 10x3/uL (0.0-0.2); #Eosinophils 0.14 10x3/uL (0.0-0.7); #Monocytes 0.83 10x3/uL (0.11-0.59); #Neutrophils 7.07 10x3/uL (1.40-6.50); %Basophils 0.3 % (0.0-1.0); %Eosinophils 1.5 % (0.0-10.0); %Lymphocytes 10.4 % (21.0-51.0); %Monocytes 9.2 % (0.0-10.0); %Neutrophils 78.2 % (42.0-75.0); Hematocrit 22.4 % (36.0-47.0); Hemoglobin 7.5 g/dL (12.0-16.0); Mean Corpuscular Hemoglobin 31.8 pg (27.0-31.0); Mean Corpuscular Volume 94.9 fL (78.0-98.0); Platelet Count 94 10x3/uL (130-400); Red Blood Cell (RBC) Count 2.36 mill/uL (4.20-5.40); White Blood Cell (WBC) Count 9.05 10x3/uL (4.8-10.8)
[2025-08-19 04:34] LABS: ALT (SGPT) 22 U/L (Less than 34); AST (SGOT) 84 U/L (11-34); Albumin 3.5 g/dL (3.1-4.5); Alkaline Phosphatase 133 U/L (40-110); Anion Gap 15 mmol/L (10-20); BUN (Urea Nitrogen) 29 mg/dL (9.8-20.1); Bilirubin, Total 3.8 mg/dL (0.3-1.2); Calc. Creatinine Clearance 71 mL/min (70-130); Calcium 8.4 mg/dL (7.8-10.44); Carbon Dioxide 29 mmol/L (23-31); Chloride 86 mmol/L (98-107); Globulin 3.8 g/dL (2.4-3.5); Glucose 102 mg/dL (80-115); Magnesium 2.8 mg/dL (1.6-2.6); Potassium 3.8 mmol/L (3.5-5.1); Sodium 126 mmol/L (136-145)
[2025-08-19] MEDS: Albumin 25% 25 GM (100 mL) BOT IVPB SCH ×2 (10:43→14:48)
[2025-08-19 17:50] LABS: Anion Gap 14 mmol/L (10-20); BUN (Urea Nitrogen) 26 mg/dL (9.8-20.1); Calc. Creatinine Clearance 83 mL/min (70-130); Calcium 8.6 mg/dL (7.8-10.44); Carbon Dioxide 26 mmol/L (23-31); Chloride 88 mmol/L (98-107); Glucose 103 mg/dL (80-115); Magnesium 2.7 mg/dL (1.6-2.6); Potassium 4.3 mmol/L (3.5-5.1); Sodium 124 mmol/L (136-145)
[2025-08-20 04:19] LABS: #Basophils Less than 0.03 10x3/uL (0.0-0.2); #Eosinophils 0.08 10x3/uL (0.0-0.7); #Monocytes 0.63 10x3/uL (0.11-0.59); #Neutrophils 5.71 10x3/uL (1.40-6.50); %Basophils 0.3 % (0.0-1.0); %Eosinophils 1.1 % (0.0-10.0); %Lymphocytes 8.6 % (21.0-51.0); %Monocytes 8.9 % (0.0-10.0); %Neutrophils 80.7 % (42.0-75.0); Hematocrit 19.6 % (36.0-47.0); Hemoglobin 6.8 g/dL (12.0-16.0); Mean Corpuscular Hemoglobin 32.4 pg (27.0-31.0); Mean Corpuscular Volume 93.3 fL (78.0-98.0); Platelet Count 72 10x3/uL (130-400); Red Blood Cell (RBC) Count 2.10 mill/uL (4.20-5.40); White Blood Cell (WBC) Count 7.08 10x3/uL (4.8-10.8)
[2025-08-20 04:30] LABS: ALT (SGPT) 13 U/L (Less than 34); AST (SGOT) 51 U/L (11-34); Albumin 4.0 g/dL (3.1-4.5); Alkaline Phosphatase 114 U/L (40-110); Anion Gap 14 mmol/L (10-20); BUN (Urea Nitrogen) 33 mg/dL (9.8-20.1); Bilirubin, Total 4.7 mg/dL (0.3-1.2); Calc. Creatinine Clearance 76 mL/min (70-130); Calcium 8.6 mg/dL (7.8-10.44); Carbon Dioxide 27 mmol/L (23-31); Chloride 89 mmol/L (98-107); Globulin 2.9 g/dL (2.4-3.5); Glucose 99 mg/dL (80-115); Magnesium 2.6 mg/dL (1.6-2.6); Potassium 4.1 mmol/L (3.5-5.1); Sodium 126 mmol/L (136-145)
[2025-08-20 04:54] LABS: Free T4 (Free Thyroxine) 1.07 ng/dL (0.70-1.48); Thyroid Stimulating Hormone 1.1567 uIU/mL (0.35-4.94)
[2025-08-20] MEDS: Acetaminophen 500 MG TAB PO SCH ×2 (05:03→23:39)
[2025-08-20] MEDS: Furosemide 40 MG (4 mL) VIAL SLOW IVP SCH ×3 (11:26→21:05)
[2025-08-20] MEDS: Albumin 25% 25 GM (100 mL) BOT IVPB SCH ×2 (11:26→11:28)
[2025-08-20 18:09] LABS: Hematocrit 21.6 % (36.0-47.0); Hemoglobin 7.4 g/dL (12.0-16.0)
[2025-08-20 18:33] LABS: Anion Gap 18 mmol/L (10-20); BUN (Urea Nitrogen) 31 mg/dL (9.8-20.1); Calc. Creatinine Clearance 80 mL/min (70-130); Calcium 8.7 mg/dL (7.8-10.44); Carbon Dioxide 26 mmol/L (23-31); Chloride 87 mmol/L (98-107); Glucose 109 mg/dL (80-115); Potassium 4.3 mmol/L (3.5-5.1); Sodium 127 mmol/L (136-145)
[2025-08-20] MEDS: LevoFLOXacin 750 mg/D5W 750 MG in Premix 1 BAG IVPB SCH (21:05)
[2025-08-20 22:22] LABS: Bacteria/HPF 4+ HPF (None Seen); CAUTI Indications for Culture Alt mental st,lethar; Glucose, Urine (Dipstick) Normal (Negative); Leukocyte 500 Leu/uL (Negative); Protein, Urine (Dipstick) 10 mg/dL (Neg-Trace); Specific Gravity, Urine 1.012 (1.002-1.036); WBC/HPF 21-50 HPF (0-3)
[2025-08-20 22:24] LABS: Urine Culture Reflex Yes Yes
[2025-08-21 04:09] LABS: #Basophils Less than 0.03 10x3/uL (0.0-0.2); #Eosinophils 0.06 10x3/uL (0.0-0.7); #Monocytes 0.73 10x3/uL (0.11-0.59); #Neutrophils 6.37 10x3/uL (1.40-6.50); %Basophils 0.3 % (0.0-1.0); %Eosinophils 0.8 % (0.0-10.0); %Lymphocytes 5.4 % (21.0-51.0); %Monocytes 9.6 % (0.0-10.0); %Neutrophils 83.4 % (42.0-75.0); Hematocrit 20.3 % (36.0-47.0); Hemoglobin 6.9 g/dL (12.0-16.0); Mean Corpuscular Hemoglobin 32.4 pg (27.0-31.0); Mean Corpuscular Volume 95.3 fL (78.0-98.0); Platelet Count 67 10x3/uL (130-400); Red Blood Cell (RBC) Count 2.13 mill/uL (4.20-5.40); White Blood Cell (WBC) Count 7.63 10x3/uL (4.8-10.8)
[2025-08-21 04:16] LABS: ALT (SGPT) 11 U/L (Less than 34); AST (SGOT) 44 U/L (11-34); Albumin 4.2 g/dL (3.1-4.5); Alkaline Phosphatase 93 U/L (40-110); Anion Gap 17 mmol/L (10-20); BUN (Urea Nitrogen) 35 mg/dL (9.8-20.1); Bilirubin, Total 6.2 mg/dL (0.3-1.2); Calc. Creatinine Clearance 69 mL/min (70-130); Calcium 8.8 mg/dL (7.8-10.44); Carbon Dioxide 26 mmol/L (23-31); Chloride 89 mmol/L (98-107); Globulin 2.5 g/dL (2.4-3.5); Glucose 90 mg/dL (80-115); Magnesium 2.6 mg/dL (1.6-2.6); Potassium 4.3 mmol/L (3.5-5.1); Sodium 128 mmol/L (136-145)
[2025-08-21] MEDS: Furosemide 20 MG (2 mL) VIAL SLOW IVP SCH (06:44)
[2025-08-21 07:31] LABS: #Basophils Less than 0.03 10x3/uL (0.0-0.2); #Eosinophils 0.08 10x3/uL (0.0-0.7); #Monocytes 0.60 10x3/uL (0.11-0.59); #Neutrophils 7.47 10x3/uL (1.40-6.50); %Basophils 0.2 % (0.0-1.0); %Eosinophils 0.9 % (0.0-10.0); %Lymphocytes 6.1 % (21.0-51.0); %Monocytes 6.9 % (0.0-10.0); %Neutrophils 85.4 % (42.0-75.0); Hematocrit 22.7 % (36.0-47.0); Hemoglobin 7.7 g/dL (12.0-16.0); Mean Corpuscular Hemoglobin 32.0 pg (27.0-31.0); Mean Corpuscular Volume 94.2 fL (78.0-98.0); Platelet Count 71 10x3/uL (130-400); Red Blood Cell (RBC) Count 2.41 mill/uL (4.20-5.40); White Blood Cell (WBC) Count 8.74 10x3/uL (4.8-10.8)
[2025-08-21 07:38] LABS: INR-International Normal Ratio 2.0; Prothrombin Time 23.2 sec (12.0-14.7)
[2025-08-21 07:39] LABS: PTT 48.7 sec (22.9-36.1)
[2025-08-21] MEDS: Furosemide 40 MG (4 mL) VIAL SLOW IVP SCH (08:24)
[2025-08-21 15:40] LABS: Actual Bicarbonate (HCO3a) 26.8 mEq/L (22-28); Base Excess (BEa) 3.1 mEq/L (-2.0 to +3.0); CO2 Tension 37.4 mmHg (35.0-45.0); Calcium, Ionized (arterial) 1.08 mmol/L (1.12-1.30); Hematocrit-ABG 27 % (36.0-47.0); Hemoglobin (Hb) 9.3 g/dL (12.0-16.0); O2 Tension (PaO2), arterial 62.0 mmHg (> 80.0); Potassium - ABG Lab 4.50 mmol/L (3.70-5.30); pH, Arterial 7.473 (7.35-7.45)
[2025-08-21 15:42] LABS: ALV-art Gradient 604.250 mmHg (0-20); Puncture Site Left Radial artery
[2025-08-21] MEDS ORDERED: Ventilator Sedation Protocol 1 EACH FS SCH (20:15)
[2025-08-21] MEDS ORDERED: Propofol BOLUS 1,000 MG/100 ML VIAL IV PRN (20:30)
[2025-08-21] MEDS ORDERED: Fentanyl BOLUS 100 ML IVPB PRN (20:30)
[2025-08-21] MEDS ORDERED: DISCONTINUE PREVIOUS NARCOTIC PAIN MEDICATIONS AND BENZODIAZEPINES FS SCH (20:30)
[2025-08-21 20:41] LABS: Actual Bicarbonate (HCO3a) 22.3 mEq/L (22-28); Base Excess (BEa) -3.0 mEq/L (-2.0 to +3.0); CO2 Tension 40.9 mmHg (35.0-45.0); Calcium, Ionized (arterial) 1.10 mmol/L (1.12-1.30); Hematocrit-ABG 29 % (36.0-47.0); Hemoglobin (Hb) 9.7 g/dL (12.0-16.0); Potassium - ABG Lab 4.15 mmol/L (3.70-5.30); pH, Arterial 7.355 (7.35-7.45)
[2025-08-21 20:47] LABS: O2 Tension (PaO2), arterial 47.2 mmHg (> 80.0); Puncture Site Right Radial artery
[2025-08-21 20:48] LABS: ALV-art Gradient 614.675 mmHg (0-20)
[2025-08-21] MEDS ORDERED: Calcium Carbonate 500 MG ChewTAB PER TUBE PRN (23:01)
[2025-08-21] MEDS ORDERED: Melatonin 3 MG TAB PER TUBE PRN (23:02)
[2025-08-21] MEDS ORDERED: Bisacodyl 10 MG SUPP PR PRN (23:04)
[2025-08-21] MEDS ORDERED: Senokot S 8.6-50 MG TAB PER TUBE PRN (23:07)
[2025-08-22] MEDS ORDERED: NOREPINEPHRINE 8 MG/250 ML-D5W 250 ML IVPB SCH (00:45)
[2025-08-22] MEDS: Norepinephrine 16 MG in Dextrose 5% in Water 234 ML IVPB SCH (01:53)
[2025-08-22 03:58] LABS: #Basophils 0.03 10x3/uL (0.0-0.2); #Eosinophils Less than 0.03 10x3/uL (0.0-0.7); #Monocytes 0.60 10x3/uL (0.11-0.59); #Neutrophils 15.29 10x3/uL (1.40-6.50); %Basophils 0.2 % (0.0-1.0); %Eosinophils 0.1 % (0.0-10.0); %Lymphocytes 1.8 % (21.0-51.0); %Monocytes 3.7 % (0.0-10.0); %Neutrophils 93.7 % (42.0-75.0); Hematocrit 25.2 % (36.0-47.0); Hemoglobin 8.4 g/dL (12.0-16.0); Mean Corpuscular Hemoglobin 32.2 pg (27.0-31.0); Mean Corpuscular Volume 96.6 fL (78.0-98.0); Platelet Count 63 10x3/uL (130-400); Red Blood Cell (RBC) Count 2.61 mill/uL (4.20-5.40); White Blood Cell (WBC) Count 16.30 10x3/uL (4.8-10.8)
[2025-08-22 04:27] LABS: ALT (SGPT) 11 U/L (Less than 34); AST (SGOT) 51 U/L (11-34); Albumin 3.6 g/dL (3.1-4.5); Alkaline Phosphatase 71 U/L (40-110); Anion Gap 19 mmol/L (10-20); BUN (Urea Nitrogen) 25 mg/dL (9.8-20.1); Bilirubin, Total 7.3 mg/dL (0.3-1.2); Calc. Creatinine Clearance 117 mL/min (70-130); Calcium 8.8 mg/dL (7.8-10.44); Carbon Dioxide 20 mmol/L (23-31); Chloride 99 mmol/L (98-107); Globulin 2.4 g/dL (2.4-3.5); Glucose 69 mg/dL (80-115); Potassium 3.7 mmol/L (3.5-5.1); Sodium 134 mmol/L (136-145)
[2025-08-22 07:45] LABS: Actual Bicarbonate (HCO3a) 22.8 mEq/L (22-28); Base Excess (BEa) -1.6 mEq/L (-2.0 to +3.0); CO2 Tension 37.0 mmHg (35.0-45.0); Calcium, Ionized (arterial) 1.14 mmol/L (1.12-1.30); Hematocrit-ABG 27 % (36.0-47.0); Hemoglobin (Hb) 9.1 g/dL (12.0-16.0); Potassium - ABG Lab 3.93 mmol/L (3.70-5.30); pH, Arterial 7.407 (7.35-7.45)
[2025-08-22 07:53] LABS: ALV-art Gradient 618.450 mmHg (0-20); O2 Tension (PaO2), arterial 48.3 mmHg (> 80.0); Puncture Site Left Radial artery
[2025-08-22] MEDS: Potassium Bicarbonate/Cit Ac 20 MEQ TAB PER TUBE SCH (08:59)
[2025-08-22] MEDS: Furosemide 40 MG (4 mL) VIAL SLOW IVP SCH (10:57)
[2025-08-22] MEDS: Lactulose 20 GM (30 mL) UDCUP PER TUBE SCH (10:58)
[2025-08-22] MEDS: Gabapentin 400 MG CAP PER TUBE SCH (11:01)
[2025-08-22] MEDS: levETIRAcetam 500 mg/5 ml Oral Solution PER TUBE SCH ×2 (11:02→20:39)
[2025-08-22] MEDS: Pantoprazole 40 MG VIAL IVP SCH (11:03)
[2025-08-22] MEDS: Rifaximin 550 MG TAB PER TUBE SCH (11:13)
[2025-08-22 12:31] LABS: HBSAB Concentration 413.93 mIU/mL; Hep B Core Total Ab NONREACTIVE (NonReactive); Hep B Core Total Index 0.45 S/CO (0-0.79); Hep B Surf Ag NONREACTIVE S/CO (NonReactive); Hep C IgG Ab NONREACTIVE S/CO (NonReactive); Hep C Index 0.24 S/CO (0-0.79)
[2025-08-22] MEDS: Mirtazapine 15 MG TAB PER TUBE SCH (20:40)
[2025-08-22] MEDS ORDERED: Glucagon 1 MG/ML KIT IM PRN (21:00)
[2025-08-22] MEDS ORDERED: Dextrose 50% Abboject 50 ML SYRINGE SLOW IVP PRN (21:00)
[2025-08-23] MEDS: Vasopressin In 0.9 % NaCl 100 ML IV SCH (01:36)
[2025-08-23 05:26] LABS: #Basophils 0.04 10x3/uL (0.0-0.2); #Eosinophils 0.32 10x3/uL (0.0-0.7); #Monocytes 0.62 10x3/uL (0.11-0.59); #Neutrophils 11.31 10x3/uL (1.40-6.50); %Basophils 0.3 % (0.0-1.0); %Eosinophils 2.5 % (0.0-10.0); %Lymphocytes 3.7 % (21.0-51.0); %Monocytes 4.8 % (0.0-10.0); %Neutrophils 87.8 % (42.0-75.0); Hematocrit 22.6 % (36.0-47.0); Hemoglobin 7.5 g/dL (12.0-16.0); Mean Corpuscular Hemoglobin 32.5 pg (27.0-31.0); Mean Corpuscular Volume 97.8 fL (78.0-98.0); Platelet Count 53 10x3/uL (130-400); Red Blood Cell (RBC) Count 2.31 mill/uL (4.20-5.40); White Blood Cell (WBC) Count 12.87 10x3/uL (4.8-10.8)
[2025-08-23 05:27] LABS: ALT (SGPT) 17 U/L (Less than 34); AST (SGOT) 94 U/L (11-34); Albumin 3.1 g/dL (3.1-4.5); Alkaline Phosphatase 69 U/L (40-110); Anion Gap 15 mmol/L (10-20); BUN (Urea Nitrogen) 24 mg/dL (9.8-20.1); Bilirubin, Total 6.0 mg/dL (0.3-1.2); Calc. Creatinine Clearance 72 mL/min (70-130); Calcium 8.6 mg/dL (7.8-10.44); Carbon Dioxide 22 mmol/L (23-31); Chloride 102 mmol/L (98-107); Globulin 2.4 g/dL (2.4-3.5); Glucose 78 mg/dL (80-115); Magnesium 2.3 mg/dL (1.6-2.6); Potassium 3.8 mmol/L (3.5-5.1); Sodium 135 mmol/L (136-145)
[2025-08-23 05:57] LABS: Anisocytosis SLIGHT = 6-15 cells HPF (0-5); Burr Cells SLIGHT = 2-5 cells HPF (0-1); Macrocytosis MARKED = >30 cells HPF (0-5); Platelet Adequacy Comment Platelets Decreased; Poikilocytosis SLIGHT = 6-15 cells HPF (0-5); Polychromasia SLIGHT = 2-3 cells HPF (0-2); Schistocytes SLIGHT = 2-5 cells HPF (0-1); Smudge Cells 1.0 %; Target Cells SLIGHT = 2-5 cells HPF (0-1)
[2025-08-23 06:34] LABS: Actual Bicarbonate (HCO3a) 22.6 mEq/L (22-28); Base Excess (BEa) -1.2 mEq/L (-2.0 to +3.0); CO2 Tension 34.3 mmHg (35.0-45.0); Calcium, Ionized (arterial) 1.16 mmol/L (1.12-1.30); Hematocrit-ABG 26 % (36.0-47.0); Hemoglobin (Hb) 8.9 g/dL (12.0-16.0); Potassium - ABG Lab 3.89 mmol/L (3.70-5.30); pH, Arterial 7.437 (7.35-7.45)
[2025-08-23 06:50] LABS: O2 Tension (PaO2), arterial 43.4 mmHg (> 80.0); Puncture Site Right Radial artery
[2025-08-23 06:51] LABS: ALV-art Gradient 341.525 mmHg (0-20)
[2025-08-23] MEDS ORDERED: Gabapentin 400 MG CAP PER TUBE SCH (10:55)
[2025-08-23] MEDS: Gabapentin 100 MG CAP PER TUBE SCH (15:26)
[2025-08-23] MEDS: Norepinephrine 8 MG/0.9% NS 250 ML IVPB SCH (18:33)
[2025-08-23] MEDS: Phenylephrine 40 MG/NS 250 ML 250 ML IVPB SCH (19:54)
[2025-08-23 20:01] LABS: Hematocrit 22.2 % (36.0-47.0); Hemoglobin 7.2 g/dL (12.0-16.0); Mean Corpuscular Hemoglobin 32.0 pg (27.0-31.0); Mean Corpuscular Volume 98.7 fL (78.0-98.0); Platelet Count 54 10x3/uL (130-400); Red Blood Cell (RBC) Count 2.25 mill/uL (4.20-5.40); White Blood Cell (WBC) Count 10.90 10x3/uL (4.8-10.8)
[2025-08-24 04:07] LABS: #Basophils 0.04 10x3/uL (0.0-0.2); #Eosinophils 0.17 10x3/uL (0.0-0.7); #Monocytes 0.85 10x3/uL (0.11-0.59); #Neutrophils 11.26 10x3/uL (1.40-6.50); %Basophils 0.3 % (0.0-1.0); %Eosinophils 1.3 % (0.0-10.0); %Lymphocytes 3.7 % (21.0-51.0); %Monocytes 6.6 % (0.0-10.0); %Neutrophils 87.0 % (42.0-75.0); Hematocrit 22.1 % (36.0-47.0); Hemoglobin 7.3 g/dL (12.0-16.0); Mean Corpuscular Hemoglobin 32.0 pg (27.0-31.0); Mean Corpuscular Volume 96.9 fL (78.0-98.0); Platelet Count 44 10x3/uL (130-400); Red Blood Cell (RBC) Count 2.28 mill/uL (4.20-5.40); White Blood Cell (WBC) Count 12.94 10x3/uL (4.8-10.8)
[2025-08-24 04:09] LABS: INR-International Normal Ratio 2.3; Prothrombin Time 25.2 sec (12.0-14.7)
[2025-08-24 04:10] LABS: ALT (SGPT) 21 U/L (Less than 34); AST (SGOT) 119 U/L (11-34); Albumin 3.0 g/dL (3.1-4.5); Alkaline Phosphatase 104 U/L (40-110); Anion Gap 13 mmol/L (10-20); BUN (Urea Nitrogen) 19 mg/dL (9.8-20.1); Bilirubin, Total 7.1 mg/dL (0.3-1.2); Calc. Creatinine Clearance 92 mL/min (70-130); Calcium 8.8 mg/dL (7.8-10.44); Carbon Dioxide 21 mmol/L (23-31); Chloride 106 mmol/L (98-107); Globulin 2.6 g/dL (2.4-3.5); Glucose 115 mg/dL (80-115); Potassium 4.2 mmol/L (3.5-5.1); Sodium 136 mmol/L (136-145)
[2025-08-24 04:11] LABS: PTT 63.3 sec (22.9-36.1)
[2025-08-24 07:29] LABS: Actual Bicarbonate (HCO3a) 22.1 mEq/L (22-28); Base Excess (BEa) -1.5 mEq/L (-2.0 to +3.0); CO2 Tension 32.8 mmHg (35.0-45.0); Calcium, Ionized (arterial) 1.21 mmol/L (1.12-1.30); Hematocrit-ABG 25 % (36.0-47.0); Hemoglobin (Hb) 8.4 g/dL (12.0-16.0); O2 Tension (PaO2), arterial 78.7 mmHg (> 80.0); Potassium - ABG Lab 4.25 mmol/L (3.70-5.30); pH, Arterial 7.447 (7.35-7.45)
[2025-08-24 07:30] LABS: Puncture Site Arterial Line
[2025-08-24 07:31] LABS: ALV-art Gradient 201.150 mmHg (0-20)
[2025-08-24] MEDS: Albumin 25% 25 GM (100 mL) BOT IVPB SCH (12:43)
[2025-08-24] MEDS: Heparin 10,000 UNITS/ 10 ML VIAL CATH SCH (16:37)
[2025-08-25 04:24] LABS: #Basophils Less than 0.03 10x3/uL (0.0-0.2); #Eosinophils 0.28 10x3/uL (0.0-0.7); #Monocytes 0.81 10x3/uL (0.11-0.59); #Neutrophils 8.29 10x3/uL (1.40-6.50); %Basophils 0.2 % (0.0-1.0); %Eosinophils 2.8 % (0.0-10.0); %Lymphocytes 6.1 % (21.0-51.0); %Monocytes 8.0 % (0.0-10.0); %Neutrophils 81.9 % (42.0-75.0); Hematocrit 18.7 % (36.0-47.0); Hemoglobin 6.1 g/dL (12.0-16.0); Mean Corpuscular Hemoglobin 32.3 pg (27.0-31.0); Mean Corpuscular Volume 98.9 fL (78.0-98.0); Platelet Count 28 10x3/uL (130-400); Red Blood Cell (RBC) Count 1.89 mill/uL (4.20-5.40); White Blood Cell (WBC) Count 10.12 10x3/uL (4.8-10.8)
[2025-08-25 04:28] LABS: ALT (SGPT) 21 U/L (Less than 34); AST (SGOT) 112 U/L (11-34); Albumin 2.9 g/dL (3.1-4.5); Alkaline Phosphatase 120 U/L (40-110); Anion Gap 12 mmol/L (10-20); BUN (Urea Nitrogen) 34 mg/dL (9.8-20.1); Bilirubin, Total 7.3 mg/dL (0.3-1.2); Calc. Creatinine Clearance 66 mL/min (70-130); Calcium 9.0 mg/dL (7.8-10.44); Carbon Dioxide 21 mmol/L (23-31); Chloride 107 mmol/L (98-107); Globulin 2.3 g/dL (2.4-3.5); Glucose 88 mg/dL (80-115); Potassium 4.0 mmol/L (3.5-5.1); Sodium 136 mmol/L (136-145)
[2025-08-25] MEDS: Albumin 25% 25 GM (100 mL) BOT IVPB PRN (14:57)
[2025-08-25 23:28] LABS: Actual Bicarbonate (HCO3a) 20.1 mEq/L (22-28); Base Excess (BEa) -3.7 mEq/L (-2.0 to +3.0); CO2 Tension 31.7 mmHg (35.0-45.0); Calcium, Ionized (arterial) 1.28 mmol/L (1.12-1.30); Hematocrit-ABG 26 % (36.0-47.0); Hemoglobin (Hb) 8.8 g/dL (12.0-16.0); Potassium - ABG Lab 3.78 mmol/L (3.70-5.30); pH, Arterial 7.421 (7.35-7.45)
[2025-08-25] MEDS: Ketamine In 0.9 % NaCl 50 MG/5 ML SYRINGE SLOW IVP SCH ×2 (23:28→23:40)
[2025-08-25 23:29] LABS: O2 Tension (PaO2), arterial 53.8 mmHg (> 80.0)
[2025-08-26] MEDS: KETAMINE 2,500 MG in Sodium Chloride 0.9% 250 ML 225 ML IVPB SCH (00:02)
[2025-08-26 06:07] LABS: #Basophils 0.04 10x3/uL (0.0-0.2); #Eosinophils 0.21 10x3/uL (0.0-0.7); #Monocytes 0.60 10x3/uL (0.11-0.59); #Neutrophils 14.73 10x3/uL (1.40-6.50); %Basophils 0.2 % (0.0-1.0); %Eosinophils 1.3 % (0.0-10.0); %Lymphocytes 3.5 % (21.0-51.0); %Monocytes 3.7 % (0.0-10.0); %Neutrophils 89.6 % (42.0-75.0); Hematocrit 23.9 % (36.0-47.0); Hemoglobin 7.8 g/dL (12.0-16.0); Mean Corpuscular Hemoglobin 31.5 pg (27.0-31.0); Mean Corpuscular Volume 96.4 fL (78.0-98.0); Platelet Count 22 10x3/uL (130-400); Red Blood Cell (RBC) Count 2.48 mill/uL (4.20-5.40); White Blood Cell (WBC) Count 16.43 10x3/uL (4.8-10.8)
[2025-08-26 06:35] LABS: ALT (SGPT) 27 U/L (Less than 34); AST (SGOT) 148 U/L (11-34); Albumin 3.1 g/dL (3.1-4.5); Alkaline Phosphatase 174 U/L (40-110); Anion Gap 15 mmol/L (10-20); BUN (Urea Nitrogen) 53 mg/dL (9.8-20.1); Bilirubin, Total 10.1 mg/dL (0.3-1.2); Calc. Creatinine Clearance 61 mL/min (70-130); Calcium 9.3 mg/dL (7.8-10.44); Carbon Dioxide 19 mmol/L (23-31); Chloride 107 mmol/L (98-107); Globulin 2.4 g/dL (2.4-3.5); Glucose 81 mg/dL (80-115); Potassium 4.0 mmol/L (3.5-5.1); Sodium 137 mmol/L (136-145)
[2025-08-26 07:24] LABS: Actual Bicarbonate (HCO3a) 21.4 mEq/L (22-28); Base Excess (BEa) -4.2 mEq/L (-2.0 to +3.0); CO2 Tension 41.4 mmHg (35.0-45.0); Calcium, Ionized (arterial) 1.33 mmol/L (1.12-1.30); Hematocrit-ABG 27 % (36.0-47.0); Hemoglobin (Hb) 9.3 g/dL (12.0-16.0); O2 Tension (PaO2), arterial 92.4 mmHg (> 80.0); Potassium - ABG Lab 4.07 mmol/L (3.70-5.30); pH, Arterial 7.331 (7.35-7.45)
[2025-08-26 07:26] LABS: ALV-art Gradient 354.950 mmHg (0-20); Puncture Site ALINE
[2025-08-26] MEDS: Gabapentin 100 MG CAP PER TUBE SCH (17:19)
[2025-08-27] MEDS: Hydrocortisone Sod Succ/PF 100 mg/2 ml Vial IVP SCH ×2 (03:46→09:00)
[2025-08-27 05:22] LABS: #Basophils 0.05 10x3/uL (0.0-0.2); #Eosinophils 0.12 10x3/uL (0.0-0.7); #Monocytes 0.57 10x3/uL (0.11-0.59); #Neutrophils 15.92 10x3/uL (1.40-6.50); %Basophils 0.3 % (0.0-1.0); %Eosinophils 0.7 % (0.0-10.0); %Lymphocytes 4.3 % (21.0-51.0); %Monocytes 3.2 % (0.0-10.0); %Neutrophils 88.3 % (42.0-75.0); Hematocrit 23.5 % (36.0-47.0); Hemoglobin 7.6 g/dL (12.0-16.0); Mean Corpuscular Hemoglobin 31.9 pg (27.0-31.0); Mean Corpuscular Volume 98.7 fL (78.0-98.0); Platelet Count 32 10x3/uL (130-400); Red Blood Cell (RBC) Count 2.38 mill/uL (4.20-5.40); White Blood Cell (WBC) Count 18.01 10x3/uL (4.8-10.8)
[2025-08-27 05:39] LABS: ALT (SGPT) 26 U/L (Less than 34); AST (SGOT) 145 U/L (11-34); Albumin 3.2 g/dL (3.1-4.5); Alkaline Phosphatase 170 U/L (40-110); Anion Gap 12 mmol/L (10-20); BUN (Urea Nitrogen) 62 mg/dL (9.8-20.1); Bilirubin, Total 10.1 mg/dL (0.3-1.2); Calc. Creatinine Clearance 46 mL/min (70-130); Calcium 9.6 mg/dL (7.8-10.44); Carbon Dioxide 21 mmol/L (23-31); Chloride 107 mmol/L (98-107); Globulin 2.5 g/dL (2.4-3.5); Glucose 72 mg/dL (80-115); Potassium 4.0 mmol/L (3.5-5.1); Sodium 136 mmol/L (136-145)
[2025-08-27] MEDS ORDERED: Hydrocortisone Sod Succ/PF 100 mg/2 ml Vial IVP SCH (06:00)
[2025-08-27 07:22] VITALS: BP 89/42
[2025-08-27 12:24] VITALS: BMI 37.6
[2025-08-27 16:55] VITALS: TEMP 98.3
== END 2025-08-27 18:46 | disposition expired ==
LOC: ERS 13:37 → ERHOLD 18:31 → 2SE 23:05 → CCU 08-21 05:47
PROVIDERS: ADMIT Family Medicine; ATTEND Internal Medicine
PROC: 30233J1 Transfusion of Nonautologous Serum Albumin into Peripheral Vein, Percutaneous Approach (ICD-10-PCS; 2025-08-19)
PROC: 3E04329 Introduction of Other Anti-infective into Central Vein, Percutaneous Approach (ICD-10-PCS; 2025-08-20)
PROC: 30233N1 Transfusion of Nonautologous Red Blood Cells into Peripheral Vein, Percutaneous Approach (ICD-10-PCS; 2025-08-20)
PROC: 0BH17EZ Insertion of Endotracheal Airway into Trachea, Via Natural or Artificial Opening (ICD-10-PCS; principal; 2025-08-21)
PROC: 06HY33Z Insertion of Infusion Device into Lower Vein, Percutaneous Approach (ICD-10-PCS; 2025-08-21)
PROC: 5A1955Z Respiratory Ventilation, Greater than 96 Consecutive Hours (ICD-10-PCS; 2025-08-21)
PROC: 5A09357 Assistance with Respiratory Ventilation, Less than 24 Consecutive Hours, Continuous Positive Airway Pressure (ICD-10-PCS; 2025-08-21)
PROC: 0T9B70Z Drainage of Bladder with Drainage Device, Via Natural or Artificial Opening (ICD-10-PCS; 2025-08-21)
PROC: 4A133R1 Monitoring of Arterial Saturation, Peripheral, Percutaneous Approach (ICD-10-PCS; 2025-08-21)
PROC: 3E043XZ Introduction of Vasopressor into Central Vein, Percutaneous Approach (ICD-10-PCS; 2025-08-22)
PROC: 5A1D70Z Performance of Urinary Filtration, Intermittent, Less than 6 Hours Per Day (ICD-10-PCS; 2025-08-22)
PROC: 03HY32Z Insertion of Monitoring Device into Upper Artery, Percutaneous Approach (ICD-10-PCS; 2025-08-23)
PROC: 4A133B1 Monitoring of Arterial Pressure, Peripheral, Percutaneous Approach (ICD-10-PCS; 2025-08-23)
PROC: 4A133J1 Monitoring of Arterial Pulse, Peripheral, Percutaneous Approach (ICD-10-PCS; 2025-08-23)
PROC: 0DH67UZ Insertion of Feeding Device into Stomach, Via Natural or Artificial Opening (ICD-10-PCS; 2025-08-23)
PROC: 3E0G76Z Introduction of Nutritional Substance into Upper GI, Via Natural or Artificial Opening (ICD-10-PCS; 2025-08-23)
PROC: 05HY33Z Insertion of Infusion Device into Upper Vein, Percutaneous Approach (ICD-10-PCS; 2025-08-23)
PROC: 3E033XZ Introduction of Vasopressor into Peripheral Vein, Percutaneous Approach (ICD-10-PCS; 2025-08-23)
PROC: 3E03329 Introduction of Other Anti-infective into Peripheral Vein, Percutaneous Approach (ICD-10-PCS; 2025-08-24)
PROC: 02HV33Z Insertion of Infusion Device into Superior Vena Cava, Percutaneous Approach (ICD-10-PCS; 2025-08-26)
PROC: B548ZZA Ultrasonography of Superior Vena Cava, Guidance (ICD-10-PCS; 2025-08-26)
DX: I13.2 Hypertensive heart and chronic kidney disease with heart failure and with stage 5 chronic kidney disease, or end stage renal disease (principal); I50.33 Acute on chronic diastolic (congestive) heart failure; I21.A1 Myocardial infarction type 2; J96.01 Acute respiratory failure with hypoxia; N18.6 End stage renal disease; J18.9 Pneumonia, unspecified organism; E87.1 Hypo-osmolality and hyponatremia; N17.9 Acute kidney failure, unspecified; K76.6 Portal hypertension; N39.0 Urinary tract infection, site not specified; E87.20 Acidosis, unspecified; R57.9 Shock, unspecified; Z68.41 Body mass index [BMI] 40.0-44.9, adult; Z51.5 Encounter for palliative care; Z66 Do not resuscitate; K74.60 Unspecified cirrhosis of liver; E87.6 Hypokalemia; G89.4 Chronic pain syndrome; E77.8 Other disorders of glycoprotein metabolism; G40.909 Epilepsy, unspecified, not intractable, without status epilepticus; E66.01 Morbid (severe) obesity due to excess calories; D63.1 Anemia in chronic kidney disease; K75.81 Nonalcoholic steatohepatitis (NASH); E87.8 Other disorders of electrolyte and fluid balance, not elsewhere classified; B96.20 Unspecified Escherichia coli [E. coli] as the cause of diseases classified elsewhere; E88.09 Other disorders of plasma-protein metabolism, not elsewhere classified; Z99.2 Dependence on renal dialysis; Z91.81 History of falling; Z88.8 Allergy status to other drugs, medicaments and biological substances; Z88.6 Allergy status to analgesic agent; Z79.899 Other long term (current) drug therapy; Z90.49 Acquired absence of other specified parts of digestive tract; Z90.710 Acquired absence of both cervix and uterus; Z98.890 Other specified postprocedural states; Z98.891 History of uterine scar from previous surgery; Z87.820 Personal history of traumatic brain injury; E86.0 Dehydration; D69.59 Other secondary thrombocytopenia; K72.90 Hepatic failure, unspecified without coma; E80.6 Other disorders of bilirubin metabolism; Z78.1 Physical restraint status
CPT/HCPCS: 36415; 36416; 36430; 36600; 70450; 71045; 71275; 74177; 80053; 81001; 82140; 82805; 83735; 83880; 84100; 84145; 84439; 84443; 84481; 84484; 85025; 85610; 85730; 86704; 86706; 86803; 86850; 86900; 86901; 87077; 87086; 87186; 87340; 90935; 93005; 93306; 94002; 94003; 94660; 96374; 96375; G0257; J0780; J1200; J1644; J1720; J1940; J1956; J2060; J2185; J2250; J2270; J2470; J2704; J2765; J3475; J3480; J3490; J7030; J7050; J7070; P9016; P9047; Q9967